=== PATIENT | female | born 2000 | race Asian ===

== ENCOUNTER 2020-02-16 15:24 | Outpatient (REF) | payer OTHER, SELFPAY | END 2020-02-16 15:25 | disposition home or self-care (01) | LOC: HO.SCI 15:24 | PROVIDERS: Visit Provider Internal Medicine | DX: Z04.9 Encounter for examination and observation for unspecified reason (principal) ==

== ENCOUNTER → 2020-07-25 14:43 | Outpatient (BNVA) | payer OTHER, SELFPAY | PROVIDERS: Visit Provider Internal Medicine Gastroenterology | DX: K62.89 Other specified diseases of anus and rectum (principal); K62.5 Hemorrhage of anus and rectum; Z79.899 Other long term (current) drug therapy | CPT/HCPCS: 99202 ==

== ENCOUNTER 2020-08-22 08:17 | Day surgery (SDC) | payer OTHER, SELFPAY ==
[2020-08-16 15:23] VITALS: BMI 21.7
--- NOTE | 2020-08-18 13:45 | HO.ANESPROP2 ---
Documented by User: Elena Leonard 08/18/20 13:46 HPI - Anesthesia Eval Consult details Narrative: 20yo F for Colonoscopy PMFSH Active Problems Active Problems: All Active Problems (Updated 08/16/20 @ 15:19 by Babs Rowell) Rectal bleeding (Acute) Perianal pain (Acute) Depression (Acute) Anxiety (Acute) Past Medical History Medical History Anxiety and depression DCIS (ductal carcinoma in situ) of breast (~02/2020) Family History Family History Paternal Grandfather Cancer Maternal Aunt Cancer Maternal Grandfather Cancer Maternal Uncle Cesar disease Surgical History Surgical History S/P breast biopsy, left (~02/2020) Social History Social History Household Members: Family Alcohol intake: never Smoking Status: Never smoker Advance Directives: No Advance Directives Information Provided: No Advance Directives on File: No Meds Allergies Allergy/AdvReac Type Severity Reaction Status Date / Time No Known Allergies Allergy Verified 08/16/20 15:19 Home Medications Medication Instructions Recorded Confirmed Last Taken Type lamotrigine 25 mg tablet 25 mg PO Q OTHER DAY 07/25/20 08/16/20 Unknown History tamoxifen 20 mg tablet 20 mg PO DAILY 07/25/20 08/16/20 Unknown History docusate sodium [Stool Softener] 1 cap PO BID 08/16/20 08/16/20 Unknown History Exam Exam Date and Time: August 18, 2020 1345 Height,Weight and Vital Signs: Height 5 ft 2 in Weight 53.751 kg Assessment and Plan Assessment Anesthesia Assessment: Chart Reviewed Documented by User: Geneva Pierce 08/22/20 09:52 PMFSH Past Medical History Medical History Anxiety and depression DCIS (ductal carcinoma in situ) of breast (~02/2020) Family History Family History Paternal Grandfather Cancer Maternal Aunt Cancer Maternal Grandfather Cancer Maternal Uncle Cesar disease Family history of problems with anesthesia: No Surgical History Surgical History S/P breast biopsy, left (~02/2020) History of Problems with Anesthesia: No Social History Social History Household Members: Family Alcohol intake: never Smoking Status: Never smoker Advance Directives: No Advance Directives Information Provided: No Advance Directives on File: No Meds Allergies Allergy/AdvReac Type Severity Reaction Status Date / Time No Known Allergies Allergy Verified 08/16/20 15:19 Home Medications Medication Instructions Recorded Confirmed Last Taken Type lamotrigine 25 mg tablet 25 mg PO Q OTHER DAY 07/25/20 08/16/20 Unknown History tamoxifen 20 mg tablet 20 mg PO DAILY 07/25/20 08/16/20 Unknown History docusate sodium [Stool Softener] 1 cap PO BID 08/16/20 08/16/20 Unknown History Exam Height,Weight and Vital Signs: Vital Signs Temp Pulse Resp BP Pulse Ox 08/22/20 09:45 97.7 F 75 16 105/63 98 Lab Results 08/22/20 Range/Units Unknown Urine Test NEGATIVE (NEGATIVE) Airway Mallampati Class: II TM Dist: >3cm Neck ROM: Full Heart: RRR Lungs: CTAB Assessment and Plan Assessment Anesthesia Assessment: Anesthesia Plan Discussed and Chart Reviewed Final Anesthetic Review NPO: Yes ASA Class: II Final Preanesthetic Review: No Changes in Pt Med Stat, Meds/Allgs Chart Reviewed, Consent Obtained/Reviewed and Anes Risks/Benef Reviewed Patient Risk: Low Procedure Risk: Low Assessment/Block/Sedation in SS: Assess/Block/Sedation-SS Anesthetic Plan Anesthetic Plan: MAC: Disposition: Standard PACU
--- NOTE | 2020-08-22 09:09 | W.PM.OPN ---
Operative Note Operative Note Date of Service: 08/22/20 Narrative: Pre-op diagnosis: Rectal bleeding, derian-anal pain Post-op diagnosis: other (Nonbleeding internal hemorrhoids) Procedure: COLONOSCOPY TILL CECUM/TI WITH BIOPSIES Consent: Indications for the procedure and potential complications of bleeding, perforation, reaction to medications and missed diagnosis were discussed with the patient and informed consent was obtained. Instrument: Olympus PCF H 190 L variable stiffness pediatric colonoscope Monitoring: Vital signs and clinical assessment, intermittent blood pressure monitoring, continuous EKG monitoring, Pulse oximetry and Carbon Dioxide monitoring were done throughout the procedure. Colon withdrawl time was 15 minutes. Procedure: The patient was placed in the left lateral decubitis position and pre-procedure medications were administered. After a digital rectal examination of the ano-rectum, the video colonoscope was inserted into the rectum and advanced through the colon to the cecum. The colonoscope was slowly withdrawn in a retrograde panoramic fashion and the colon mucosa was carefully examined including a retroflexed view of the rectum. Findings and interventions are described below. Procedure Difficulty: Without difficulty Findings: Terminal Ileum: Distal 10 cm was examined and showed nodular appearing mucosa - random biopsies were obtained Cecum: Normal Ascending Colon: Normal Transverse Colon: Normal Descending Colon: Normal Sigmoid Colon: Normal Rectum: Normal Ano-rectum: Moderate internal hemorrhoids and hypertrophied anal papillae. Anal fissure noted on rectal examination in the clinic appears to have healed. Colon preparation: Good Impression and Post Procedure Diagnosis: Colonoscopy Findings: Nodular appearing mucosa in the TI - random biopsies were obtained from the TI, right and left colon Moderate internal hemorrhoids and hypertrophied anal papillae. Anal fissure noted on rectal examination in the clinic appears to have healed. Plan: Await pathology results Patient has an appointment on 09/11/20 in the GI [facility] with Deya Escudero M.D. Repeat Colonoscopy interval based on path results - in 20 years if random biopsies are normal. Above findings were reviewed with the patient and Hemorrhoids handouts were given in the discharge area Surgeon: Deya Escudero MD Anesthesia: MAC (Shiela Santos CRNA) Sole Stapler Welt: Cruz Yates Estimated blood loss (mL): 0 Pathology: other (A- TI BXS R/O CROHN'S B- RIGHT COLON BXS R/O CROHN'S C- LEFT COLON BXS R/O CRONH'S) Condition: stable Disposition: PACU
--- NOTE | 2020-08-22 09:10 | MHC.SHP ---
Pre-Procedural Eval Section A The patient is an INPATIENT: No Changes since office visit: Yes Patient answered all questions; No Cold of Flu in the past 2 weeks, No New Medical Problems and No Changes in Medication The History & Physical has been completed within 30 days and I have reviewed it.: Yes Section B Chief Complaint: Rectal bleeding Allergies: Allergies Allergy/AdvReac Type Severity Reaction Status Date / Time No Known Allergies Allergy Verified 08/16/20 15:19 Review of Systems Sugical H&P ROS: Negative: Constitution, Cardiovascular, Respiratory and Gastrointestinal (recatl bleeding has subsided) Plan Diagnosis/Plan: Unchanged I have reviewed the history and physical and performed a pertinent physical examination on my patient. No changes have occurred unless specified.
[2020-08-22 09:25] LABS: UPreg QC Valid YES; Urine Pregnancy NEGATIVE (NEGATIVE)
[2020-08-22 09:45] VITALS: BP 105/63; PULSE 75; RESP 16; TEMP 36.5; O2SAT 98
[2020-08-22] MEDS: Lactated Ringers 1,000 ML 100 ML IVCONT (09:51)
[2020-08-22 11:28] VITALS: BP 96/48; PULSE 81; RESP 16; TEMP 36.1; O2SAT 100
[2020-08-22 11:43] VITALS: BP 96/45; PULSE 67; RESP 18; O2SAT 100
[2020-08-22 11:58] VITALS: BP 98/54; PULSE 73; RESP 18; O2SAT 100
[2020-08-22 12:10] VITALS: BP 100/56; PULSE 70; RESP 18; O2SAT 100
== END 2020-08-22 12:34 | disposition home or self-care (01) ==
PROVIDERS: Nurse Practitioner; PCP Internal Medicine; Visit Provider Internal Medicine Gastroenterology
PROC: 0DJD8ZZ Inspection of Lower Intestinal Tract, Via Natural or Artificial Opening Endoscopic (ICD-10-PCS; CPT 45378; principal; 2020-08-22 10:00)
DX: K62.5 Hemorrhage of anus and rectum (principal); K64.8 Other hemorrhoids; D05.12 Intraductal carcinoma in situ of left breast; K62.89 Other specified diseases of anus and rectum; Z79.810 Long term (current) use of selective estrogen receptor modulators (SERMs); Z79.899 Other long term (current) drug therapy
CPT/HCPCS: 45380; 81025; 88305

== ENCOUNTER → 2020-09-11 10:51 | Outpatient (BNVA) | payer OTHER, SELFPAY | PROVIDERS: PCP Internal Medicine; Visit Provider Internal Medicine Gastroenterology | DX: K62.5 Hemorrhage of anus and rectum (principal); K62.89 Other specified diseases of anus and rectum | CPT/HCPCS: 99212 ==

== ENCOUNTER 2021-05-09 09:45 | Outpatient (REF) | payer OTHER, SELFPAY | END 2021-05-09 09:46 | disposition home or self-care (01) | LOC: HO.HMGCLDS 09:45 | PROVIDERS: Visit Provider Internal Medicine | DX: Z20.822 Contact with and (suspected) exposure to COVID-19 (principal) | CPT/HCPCS: C9803; U0003; U0005 ==

== ENCOUNTER 2021-05-25 08:55 | Outpatient (REF) | payer OTHER, SELFPAY ==
--- NOTE | ~2021-05-25 | US_ITS ---
EXAMINATION: US DIAGNOSTIC ULTRASOUND BREAST, LEFT CLINICAL INFORMATION: Diffuse breast pain. Status post left breast lumpectomy. COMPARISON: Mammography of same day. TECHNIQUE: Ultrasound of the breast is performed with real-time abad scale imaging and color Doppler. FINDINGS: There is no focal suspicious finding. There is no solid mass, architectural abnormality, duct ectasia, or edema in the soft tissue planes. Results are discussed with the patient at time of visit. US/US breast LT limited IMPRESSION: No specific ultrasound findings of the left breast to suggest malignancy. ASSESSMENT: BI-RADS 0: Incomplete - Need comparison with previous studies. RECOMMENDATION: Comparison with previous studies.
--- NOTE | ~2021-05-25 | MM_ITS ---
EXAMINATION: MM DIAGNOSTIC DIGITAL BREAST TOMOSYNTHESIS, BILATERAL US BREAST, BILATERAL CLINICAL INFORMATION: Status post left breast lumpectomy now with bilateral breast pain. COMPARISON: Mammography: None at this time. Addendum to report will be made once previous studies from [facility] are obtained for comparison purposes for this diagnostic study. TECHNIQUE: Digital breast tomosynthesis is performed in both the craniocaudal and mediolateral oblique views along with computer-aided detection (CAD). Synthesized 2-D images are generated from the tomosynthesis. Bilateral targeted breast ultrasound. FINDINGS: The breasts are extremely dense, which lowers the sensitivity of mammography (ACR BI-RADS breast composition Category d). Surgical clips from previous lumpectomy within the upper outer quadrant as well as the axilla noted. There is multiplicity and bilaterality of scattered calcifications. No new abnormal dominant mass is identified. No more suspicious grouping of microcalcifications than any other is seen. Bilateral targeted breast ultrasound did not demonstrate any abnormal cystic or solid masses in regions of pain. No region of abnormal distal sound shadowing in these locations identified. No edematous change within the parenchyma is appreciated. Regions of all quadrants were studied bilaterally. Results are discussed with the patient at time of visit. MM/MM tomosynthesis diagnostic BI IMPRESSION: Postsurgical change within the left breast. Multiplicity and bilaterality of calcifications. No specific ultrasound findings to suggest malignancy. ASSESSMENT: BI-RADS 0: Incomplete - need outside studies for comparison. RECOMMENDATION: Comparison with previous studies.
--- NOTE | ~2021-05-25 | US_ITS ---
EXAMINATION: US DIAGNOSTIC ULTRASOUND BREAST, RIGHT CLINICAL INFORMATION: Right breast pain. History of left breast cancer in 2020. COMPARISON: Mammography of same day. TECHNIQUE: Ultrasound of the breast is performed with real-time abad scale imaging and color Doppler. FINDINGS: There is no focal suspicious finding. There is no solid mass, architectural abnormality, duct ectasia, or edema in the soft tissue planes. Results are discussed with the patient at time of visit. US/US breast RT limited IMPRESSION: No specific ultrasound findings to suggest malignancy of the right breast. ASSESSMENT: BI-RADS 0: Incomplete - Need comparison with previous studies. RECOMMENDATION: Comparison with previous studies.
== END 2021-05-25 08:56 | disposition home or self-care (01) ==
LOC: HO.MAMMO 08:55
PROVIDERS: PCP Internal Medicine; Visit Provider Internal Medicine
DX: N64.4 Mastodynia (principal); N64.52 Nipple discharge; R92.8 Other abnormal and inconclusive findings on diagnostic imaging of breast; Z85.3 Personal history of malignant neoplasm of breast
CPT/HCPCS: 76642; 77062; 77066

== ENCOUNTER 2021-06-22 08:54 | Outpatient (REF) | payer OTHER, SELFPAY ==
--- NOTE | ~2021-06-22 | MM_ITS ---
EXAMINATION: MM DIAGNOSTIC DIGITAL MAMMOGRAPHY, BILATERAL CLINICAL INFORMATION: Bilateral calcifications. Status post left breast lumpectomy. COMPARISON: Mammography: 05/25/2021 and studies dating back to 02/22/2020. TECHNIQUE: Digital mammography was performed in the following views: Spot magnification views of both breasts in 90 degree mediolateral and craniocaudal projections. FINDINGS: The breasts are extremely dense, which lowers the sensitivity of mammography (ACR BI-RADS breast composition Category d). There is postsurgical change of the left breast. There is multiplicity and bilaterality of scattered and grouped calcifications predominantly in the anterior aspect of the right breast and throughout the left breast. Recommend 6-month bilateral magnification views of both breasts to ensure stability. Results were provided to the patient at time of visit by the technologist. MM/MM added views BI IMPRESSION: Bilateral scattered and grouped breast calcifications. Six-month follow up magnification views suggested to ensure stability. ASSESSMENT: BI-RADS 3: Probably Benign RECOMMENDATION: Diagnostic mammography in 6 months. This patient's information was entered into a reminder system with a target due date for their next mammogram.
== END 2021-06-22 08:55 | disposition home or self-care (01) ==
LOC: HO.MAMMO 08:54
PROVIDERS: Visit Provider Internal Medicine
DX: R92.1 Mammographic calcification found on diagnostic imaging of breast (principal)
CPT/HCPCS: 77066

== ENCOUNTER → 2021-11-08 12:52 | Outpatient (BNVA) | payer OTHER, SELFPAY | PROVIDERS: PCP Internal Medicine; Visit Provider Internal Medicine Gastroenterology | DX: K62.89 Other specified diseases of anus and rectum (principal); K62.5 Hemorrhage of anus and rectum; R10.11 Right upper quadrant pain; R06.02 Shortness of breath | CPT/HCPCS: 99212 ==

== ENCOUNTER 2021-12-27 12:01 | Outpatient (REF) | payer OTHER, SELFPAY ==
--- NOTE | ~2021-12-27 | XR_ITS ---
EXAMINATION: XR CHEST 2 VIEWS CLINICAL INFORMATION: Shortness of breath. COMPARISON: None. TECHNIQUE: Frontal and lateral views of the chest were obtained. FINDINGS: The heart, great vessels, pulmonary vasculature and mediastinum are normal. There are anterior mediastinal surgical clips. Further surgical clips project over the anterior left base. Please correlate with the patient's past surgical history. The lungs show no focal infiltrate, effusion or pneumothorax. There is no acute osseous abnormality. XR/XR chest 2V IMPRESSION: No active cardiopulmonary disease.
[2021-12-27 12:49] LABS: MANUAL DIFF FLAG NO
[2021-12-27 12:56] LABS: Basophils Percent Auto 0.4 % (0-2); Eosinophils Absolute Auto 0.3 X10*3/uL (0.0-0.4); Eosinophils Percent Auto 3.6 % (0-4); Hematocrit 38.6 % (37.0-47.0); Hemoglobin 13.1 g/dl (12.0-16.0); Imm Gran Abs Auto 0.02 X10*3/uL (0.00-0.03); Imm Gran Pct Auto 0.3 % (0.0-0.4); Lymphocytes Absolute Auto 2.7 X10*3/uL (1.2-4.9); Lymphocytes Percent Auto 35.5 % (20-40); Mean Corpuscular HGB Conc 33.9 g/dl (31.0-35.0); Mean Corpuscular Hemoglobin 29.1 pg (27.0-33.0); Mean Corpuscular Volume 85.8 fL (80.0-98.0); Mean Platelet Volume 10.9 fL (9.4-12.3); Monocytes Absolute Auto 0.5 X10*3/uL (0.1-1.2); Monocytes Percent Auto 6.2 % (2-11); Platelet Count 246 X10*3/uL (160-400); Red Cell Distribution Width 12.9 % (11.0-16.0); White Blood Count 7.5 X10*3/uL (4.8-10.8)
[2021-12-27 13:40] LABS: Alanine Aminotransferase 24 U/L (0-31); Albumin Level 4.3 g/dL (3.5-5.0); Alkaline Phosphatase 55 U/L (39-117); Aspartate Amino Transferase 18 U/L (5-31); Bilirubin Direct 0.2 mg/dL (0.0-0.5); Bilirubin Total 0.2 mg/dL (0.0-1.0); Lipase 22 U/L (8-78); Total Protein 7.7 g/dL (6.5-8.0)
== END 2021-12-27 12:02 | disposition home or self-care (01) ==
LOC: HO.LAB 12:01
PROVIDERS: PCP Internal Medicine; Visit Provider Internal Medicine Gastroenterology
DX: R06.02 Shortness of breath (principal); R10.11 Right upper quadrant pain
CPT/HCPCS: 36415; 71046; 80076; 83690; 85025

== ENCOUNTER 2022-06-07 09:54 | Outpatient (REF) | payer OTHER, SELFPAY ==
--- NOTE | ~2022-06-07 | US_ITS ---
EXAMINATION: US ABDOMEN COMPLETE CLINICAL INFORMATION: Right upper quadrant pain. COMPARISON: None TECHNIQUE: Real-time imaging of the abdominal viscera. FINDINGS: PANCREAS: Normal. ABDOMINAL AORTA: The proximal, mid, and distal segments are normal in caliber. INFERIOR VENA CAVA: Visualized portions are normal. LIVER: Normal. The liver is normal in size. The liver contour is normal. Parenchymal echogenicity is normal. No focal hepatic lesion. There is no intrahepatic biliary duct dilatation seen. GALLBLADDER: Normal. The gallbladder is physiologically distended without evidence of stones, sludge, polyps, wall thickening or pericholecystic fluid. COMMON BILE DUCT: Normal in caliber measuring 0.4 cm in diameter. RIGHT KIDNEY: Normal. No hydronephrosis. No renal calculi or focal parenchymal lesions. The kidney measures 10.0 cm in maximum dimension. LEFT KIDNEY: Normal. No hydronephrosis. No renal calculi or focal parenchymal lesions. The kidney measures 10.4 cm in maximum dimension. SPLEEN: Normal. The spleen measures 8.1 cm in maximum dimension. FREE FLUID: None. US/US abdomen complete IMPRESSION: No evidence of cholelithiasis. No significant abnormality demonstrated by ultrasound.
== END 2022-06-07 09:55 | disposition home or self-care (01) ==
LOC: HO.US 09:54
PROVIDERS: Visit Provider Internal Medicine Gastroenterology
DX: R10.11 Right upper quadrant pain (principal)
CPT/HCPCS: 76700